=== PATIENT | female | born 1945 | race Caucasian/White ===

== ENCOUNTER 2016-11-29 16:49 | Inpatient (IN) | payer MEDICARE, OTHER ==
--- NOTE | ~2016-11-29 | DS ---
Discharge Summary [facility] [address] [place]. [address] NAME: BAN MA : 43 STATUS : DIS IN PAT#: [id number] AGE: 71 ADM/REG DATE : 11/29/16 MR#: [id number] REPORT SERV DATE: 12/02/16 DICTATED BY: BILLY HERNANDEZ DATE: 12/01/16 REPORT STATUS : Draft TRANSCRIBED BY: MODL DATE: 12/01/16 ADMISSION DATE: 11/29/2016 DISCHARGE DATE: 12/01/2016 PRINCIPAL DIAGNOSIS: Acute aspiration of chronic obstructive pulmonary disease. SECONDARY DIAGNOSIS: Acute on chronic hypoxemic respiratory failure, cor pulmonale, and anasarca. HISTORY OF PRESENT ILLNESS: Please see my dictation, 11/29/2016. HOSPITAL COURSE: Admitted from Pulmonary office for increasing dyspnea with severe wheezing consistent with COPD exacerbation. The patient was also found to be volume overloaded. She received steroids, aerosol therapy, and also had diuretic infusion with vast volume loss and resolution of her feeling of well being, elimination of her shortness of breath and wheezing. The patient was able to be transitioned to oral diuretics, was given Demadex for enhanced absorption due to failure of furosemide. She was able to be released in good condition on 12/01/[address] Ar Valdez in one to two weeks and with Dr. Torres as previously scheduled. Was given Demadex to replace the Lasix. She was also changed from her metered-dose inhalers to nebulized therapy, which she said she was unable to afford metered-dose inhaler, so she received prescriptions for Brovana, Pulmicort, Atrovent with albuterol p.r.n. Other medicines were unchanged, although it was recommended that she back off on the numerous vitamin therapies, which ostensibly was missing magnesium. She was encouraged to continue potassium and magnesium supplements particularly in light of her chronic leg cramps and diuretic therapy. TAMIKO/SABINE Billy Hernandez M.D. / [id number] CC: Israel You Brian, M.D.
--- NOTE | ~2016-11-29 | HP ---
History And Physical [id number] [place]. [address] NAME: BAN MEHTA : 43 STATUS : ADM IN [facility]#: [id number] AGE: 71 ADM/REG DATE : 11/29/16 MR#: [id number] REPORT SERV DATE: 11/29/16 DICTATED BY: BILLY HERNANDEZ DATE: 11/29/16 REPORT STATUS : Draft TRANSCRIBED BY: SABINE DATE: 11/29/16 DATE OF ADMISSION: 11/29/2016 REASON FOR ADMISSION: Acute exacerbation of COPD and acute on chronic hypoxemic respiratory failure. HISTORY OF PRESENT ILLNESS: Ms. Mehta is a 71-year-old female with COPD, chronic lymphedema, hypertension, last admission one month ago for GI bleed, found to have adenocarcinoma, underwent resection with reanastomosis, discharged at the end of September to rehab and has been home for the last month, was doing okay at first, last two to three weeks had increasing shortness of breath, nocturnal cough, dyspnea on minimal exertion, unable to even eat. She has actually in fact lost 40 pounds over the past six weeks between her surgery and the postoperative recovery. Over the last few days, she has had rhinorrhea. The cough has become more severe with associated wheezing. She had a followup appointment with Dr. Torres today and was found to be very hypoxic, and was transferred here for inpatient hospitalization. The patient denies any chest pain. No fever and chills. She has had nausea without vomiting. No gastrointestinal or genitourinary complaints. Swelling of her lips unchanged. No bleeding. No neurological deficits. She has had some altered mental status according to family, but this was associated when her saturations were very low. REVIEW OF SYSTEMS: Negative. PAST MEDICAL HISTORY: As mentioned above. MEDICATIONS: Singular, Prilosec, Anoro, Atrovent, albuterol, MiraLAX, Lasix, [place], multivitamin. ALLERGIES: PENICILLIN. FAMILY HISTORY: Positive for coronary artery disease. SOCIAL HISTORY: The patient is a remote smoker. PHYSICAL EXAMINATION: VITAL SIGNS: On presentation, blood pressure 131/80, pulse 87, respiration 18, afebrile, saturating 78% on 2 L went up to 91% on 4. GENERAL: Dyspneic white female, oriented x3, in no apparent distress. HEENT: Pupils are equal, round, and reactive to light. Extraocular movements intact. No carotid deficits. Moist mucous membranes. Normal oropharynx. NECK: Revealed jugular venous distention about 6 to 8 cm of water while sitting bolt upright. CARDIAC: Regular rate and rhythm. No murmurs, gallops, or rubs. LUNGS: Showed diffuse wheeze along expiratory time. Air movement is satisfactory. ABDOMEN: Obese, soft, nontender. Bowel sounds normoactive. EXTREMITIES: 3+ edema bilaterally. Good pulses and good capillary refill. History And Physical [address] [address] NAME: BAN MEHTA : 43 STATUS : ADM IN [facility]#: [id number] AGE: 71 ADM/REG DATE : 11/29/16 MR#: [id number] REPORT SERV DATE: 11/29/16 DICTATED BY: BILLY HERNANDEZ DATE: 11/29/16 REPORT STATUS : Draft TRANSCRIBED BY: MODAndrae DATE: 11/29/16 NEUROLOGIC: Intact sensory and motor function in all four extremities. SKIN: Warm and dry. PSYCHIATRIC: She is appropriate. LABORATORY DATA: Laboratory evaluation is pending. Chest x-ray is pending. Duplex was negative six weeks ago. ASSESSMENT AND PLAN: 1. Acute exacerbation of chronic obstructive pulmonary disease, has been on steroids, mucolytics, aerosol treatments, doxycycline. Volume overload may contribute to her condition. She may have pleural effusion. Diuretic infusion will be initiated. Electrolytes will be repleted empirically. 2. Weight loss postoperatively plus changes in fluid status may be part of this. We will monitor her p.o. intake expectantly if she remains overweight. We will follow for now. 3. Hypertension. Blood pressure exacerbated by her respiratory distress. Hydralazine will be offered p.r.n. with further interventions as indicated. TAMIKO/SABINE Billy Hernandez M.D. / [id number] CC: Israel You M.D.
--- NOTE | ~2016-11-29 | CN ---
Consultation Report [facility] [address] [place]. [address] NAME: ANNA MEHTA : 43 STATUS : ADM IN PAT#: [id number] AGE: 71 ADM/REG DATE : 11/29/16 MR#: [id number] REPORT SERV DATE: 11/30/16 DICTATED BY: KUNAL IBANEZ DATE: 11/30/16 REPORT STATUS : Draft TRANSCRIBED BY: SABINE DATE: 11/30/16 CONSULTATION NOTE DATE OF CONSULTATION: 11/30/2016 CHIEF COMPLAINT: Worsening shortness of breath and hypoxemia. HISTORY OF PRESENT ILLNESS: Ms Anna Mehta is a pleasant 71-year-old white female with a past medical history significant for colon cancer, COPD, chronic hypoxemia, and bronchiectasis; who presents to [facility] as a direct admit from our Pulmonary Clinic. It should be noted that Ms Mehta was hospitalized as recently as on 10/11/2016, when she underwent resection for colon cancer. The patient has had the fairly good course in the interim, given her pulmonary disease and associated comorbidities. Ms Mehta was seen in our Pulmonary Clinic yesterday. She has been seen by Dr. Ortiz in the remote past. She does have known obstructive airway disease and chronic oxygen requirements at 2 to 4 L. She is on a pulmonary regimen of albuterol, Anoro Ellipta, and Atrovent. She states that she is compliant with these medications. She does have complaints of disordered sleep, but denies obvious snoring. The patient quit smoking 18 years ago, prior to this time, she smoked upwards of two packs a day for a period of 30 to 40 years. She describes her exercise tolerance as being quite poor, being only able to take a few steps before feeling some degree of dyspnea. Again, the patient was hospitalized in September where she underwent resection for adenocarcinoma of the colon. She did have some issues post procedurally with hypercapnia and did receive some BiPAP therapy with improvement. She did eventually transition home. Since this time, she has had significant weight loss that she attributes to a significantly decreased appetite. More recently, over the course of the last two or three days, she has had worsening hypoxemia and shortness of breath. She did present to our Pulmonary Clinic yesterday, and while there demonstrated oxygen saturation in the 70s, given these recent changes and her complaints of productive cough, she was admitted to [facility] for further workup. Currently, the patient states that her shortness of breath is slightly better. She is on 3 L of supplemental oxygen with appropriate oxygen saturations. She has received breathing treatments, steroids, and antibiotics, as well as diuretics with some again improvement in her pulmonary status. She is coughing some, but is not producing purulent sputum. She denies any overt wheezing in her chest. She denies recurrent upper respiratory infections. The patient has had some worsening lower extremity edema as of late. She denies orthopnea or paroxysmal nocturnal dyspnea. She currently denies any murmurs, angina, or palpitations. Regards to constitutional symptoms, she currently denies fever, chills, nausea, vomiting, or abdominal pain. Consultation Report [id number] [facility]. [address] NAME: ANNA MEHTA : 43 STATUS : ADM IN [facility]#: [id number] AGE: 71 ADM/REG DATE : 11/29/16 MR#: [id number] REPORT SERV DATE: 11/30/16 DICTATED BY: KUNAL IBANEZ DATE: 11/30/16 REPORT STATUS : Draft TRANSCRIBED BY: SABINE DATE: 11/30/16 PAST MEDICAL HISTORY: 1. COPD. 2. Chronic hypoxemia. 3. Hypertension. 4. Gastroesophageal reflux disease. PAST SURGICAL HISTORY: Recent colon surgery. FAMILY HISTORY: There is a patient history of coronary artery disease. She states that several members of her family had lung cancer. SOCIAL HISTORY: The patient is . She has at least two children. Her daughter is involved with her healthcare. She previously worked as a LICENSED MASSAGE PRACTITIONER and also in some capacity with [employer]. She denies any known exposures to dust, silica, or asbestos. TOBACCO/ALCOHOL: As previously mentioned, the patient quit smoking 17 or 18 years ago. Prior to this time, she smoked upwards of two packs a day for a period of 30 to 40 years. She denies any recent alcohol or illicit drug use. MEDICATIONS: 1. Albuterol. 2. Furosemide 40. 3. Pantoprazole 40 mg. 4. Potassium chloride 10 mEq. 5. Zanaflex 4 mg. 6. Anoro Ellipta. ALLERGIES: THE PATIENT HAS KNOWN ALLERGY TO AUGMENTIN. REVIEW OF SYSTEMS: A complete review of systems was performed with pertinent positives and negatives are contained within the body of the HPI. PHYSICAL EXAMINATION: VITAL SIGNS: Blood pressure is 151/72, heart rate 76, T-max is 98.5, respiratory rate is 17, and SpO2 is 93% on 3 L nasal cannula. GENERAL: The patient is a pleasant, well-nourished/well-developed female who is not currently exhibiting any signs of acute distress. SKIN: Skin with appropriate texture and turgor. No rashes, lesions, or ulcers. Nails are clear without cyanosis or clubbing. HEENT: HEAD: Skull is normocephalic/atraumatic. Facies symmetric. No masses or lesions. EYES: Sclera anicteric, conjunctiva pink without exudates. Extra ocular movements intact. Pupils are equal, round, reactive to light. EARS: Auricles and tragus without pain to palpation. Hearing is grossly intact. Consultation Report [address] [place]. [address] NAME: ANNA MEHTA : 43 STATUS : ADM IN [facility]#: [id number] AGE: 71 ADM/REG DATE : 11/29/16 MR#: [id number] REPORT SERV DATE: 11/30/16 DICTATED BY: KUNAL IBANEZ DATE: 11/30/16 REPORT STATUS : Draft TRANSCRIBED BY: SABINE DATE: 11/30/16 NOSE: Bilateral nasal patency. Sinuses without tenderness upon palpation. THROAT: The patient is edentulous. NECK: Neck supple. Trachea midline. No cervical lymphadenopathy appreciated. THORAX/LUNGS: Diminished breath sounds in the posterior lung argueta. There are few scattered rhonchi. CARDIOVASCULAR: Regular rate and rhythm. No murmurs, rubs, or gallops. Anterior chest without thrills, heaves, or lifts. ABDOMEN: Soft. Non-distended, non-tender. Active bowel sounds in all four quadrants. No hepatosplenomegaly noted. PERIPHERAL VASCULAR: No edema. No varicosities, stasis changes, open sores, ulcerations, or phlebitis. 2+ pulses in radial and dorsalis pedis. MUSCULOSKELETAL: Full AROM and PROM in all joints. No evidence of erythema, deformity, or crepitus. NEUROLOGIC: CN II - XII grossly intact. Good muscle bulk and tone bilaterally. Strength 5/5 throughout. PSYCHIATRIC: The patient demonstrates good judgment and insight. Pt is A&O x 3. ACCESSORY DATA: Reveals creatinine is 1.18, glucose is 146. White blood cell count is 7800, hemoglobin and hematocrit are 11.0 and 36. Chest x-ray reveals mild bibasilar atelectasis, superimposed on mild chronic interstitial lung changes. CT of the chest obtained in September of this year reveals severe emphysematous changes and bronchiectatic changes. IMPRESSION: 1. Acute exacerbation of chronic obstructive pulmonary disease. 2. Acute on chronic hypoxemic hypercapnic respiratory failure. 3. Mild volume overload. 4. Bronchiectasis. 5. Colon cancer. 6. Possible obstructive sleep apnea. 7. Weight loss. PLAN: 1. At this time, the patient has been appropriately placed on antibiotics. We will taper her steroids appropriately. She will be placed on a full armamentarium and nebulized medications. In regard to the patient's respiratory failure, she has been placed appropriately on supplemental oxygen. We will attempt to wean appropriately. At this time, it is unclear whether she would benefit from noninvasive positive pressure ventilation. We will check an overnight pulse oximetry toward the end of her stay to rule out an obstructive sleep apnea component. 2. In regard to the patient's mild volume overload, she has been given a dose of diuretics with good urine output. I will defer this to the primary team at this time. 3. In regard to the patient's bronchiectatic changes on CT, she does not clearly demonstrate an exacerbation of bronchiectasis at this time. We will continue her on her current antibiotic regimen. The aforementioned impression and plan has been discussed with Dr. Pacheco, who will follow Consultation Report [address] [address] NAME: ANNA MEHTA : 43 STATUS : ADM IN PAT#: [id number] AGE: 71 ADM/REG DATE : 11/29/16 MR#: [id number] REPORT SERV DATE: 11/30/16 DICTATED BY: KUNAL IBANEZ DATE: 11/30/16 REPORT STATUS : Draft TRANSCRIBED BY: MODL DATE: 11/30/16 further recommendations. We thank you for this consult and look forward to participating in the care of Ms Anna Mehta. GBS/MODL Kunal Ibanez PA-C / [id number] CC: Israel You M.D.
[~2016-11-29 16:49] MED LIST: ANOROELLIPTA INH; ATRONASAL6 NAS; FLONASE NAS; GARLIC PO; LIPOTRIAD1 CAP PO; NAP500 PO; NASAL SPRAY; PRILO PO; PROVENTSOL INH; SINGULAIR1 PO; THERGRANM PO; VITA10 PO; VITC500 PO
[2016-11-29 19:29] LABS: BASOPHILS 0.1 %; BASOPHILS ABSOLUTE 0.01 10/3/uL (0.0-0.16); EOSINOPHILS 0 %; IMMATURE GRANULOCYTES 0.4 %; IMMATURE GRANULOCYTES ABSOLUTE 0.03 10/3/uL (0.0-0.11); LYMPHOCYTES 14.8 %; LYMPHOCYTES ABSOLUTE 1.16 10/3/uL (0.67-4.30); MEAN CORPUS HGB CONC 30.6 g/dL (32.0-36.0); MEAN CORPUSCULAR HEMOGLOB 27.7 pg (26.0-34.0); MEAN PLATELET VOLUME 8.4 fL (9.2-13.0); MONOCYTES 6.4 %; NEUTROPHILS 78.3 %; NEUTROPHILS ABSOLUTE 6.12 10/3/uL (2.02-8.40); PLATELET COUNT 363 10/3/uL (150-400); RBC DISTRIBUTION WIDTH 15.9 % (12.0-16.0); WHITE BLOOD CELLS 7.8 10/3/uL (4.5-10.5)
[2016-11-29] MEDS ORDERED: FLONASE NAS (19:29)
[2016-11-29] MEDS ORDERED: ALBUTEROL5 INH (19:29)
[2016-11-29] MEDS ORDERED: ANOROELLIPTA INH (19:29)
[2016-11-29 19:30] LABS: MANUAL DIFF NO %; MEAN CORPUSCULAR VOLUME 90.7 fL (80-100); RED CELL COUNT 3.97 10/6/uL (4.0-5.6)
[2016-11-29] MEDS ORDERED: L40 PO (19:30)
[2016-11-29] MEDS ORDERED: ZANAFLEX 4 MG TA4 MG PO (19:30)
[2016-11-29] MEDS ORDERED: K-TABS10 MEQ PO (19:30)
[2016-11-29] MEDS ORDERED: PROTONIX PO (19:30)
[2016-11-29] MEDS ORDERED: ATRONASAL6 NAS (19:31)
[2016-11-29] MEDS ORDERED: MVI PO (19:31)
[2016-11-29] MEDS ORDERED: [UNRECOGNIZED DRUG - OTHER] PO (19:31)
[2016-11-29] MEDS ORDERED: VITAMIN A PO (19:32)
[2016-11-29] MEDS ORDERED: VITAMIN B PO (19:32)
[2016-11-29] MEDS ORDERED: VITAMIN E PO (19:32)
[2016-11-29] MEDS ORDERED: [UNRECOGNIZED DRUG - OTHER] PO (19:33)
[2016-11-29] MEDS ORDERED: GARLIC PO (19:33)
[2016-11-29] MEDS ORDERED: VITAMIN C PO (19:34)
[2016-11-29 19:44] LABS: A/G RATIO 0.8 (0.7-1.9); ALBUMIN 3.3 G/DL (3.5-5.0); ALKALINE PHOSPHATASE 80 U/L (45-117); BUN (BLOOD UREA NITROGEN) 12 MG/DL (6-23); CALCIUM, SERUM 9.1 MG/DL (8.5-10.4); CHLORIDE, SERUM 102 MMOL/L (96-112); CO2 (CARBON DIOXIDE) 35 MMOL/L (24-34); CREATININE 1.08 MG/DL (0.55-1.02); GFR AFRICAN AMERICAN 59 ML/MIN (>=60); GFR NON AFRICAN AMERICAN 51 ML/MIN (>=60); GLOBULIN 4.4 G/DL (2.5-4.1); GLUCOSE, SERUM 108 MG/DL (60-99); POTASSIUM, SERUM 3.7 MMOL/L (3.5-5.3); SGOT(AST) 28 U/L (5-40); SGPT(ALT) 27 U/L (5-65); SODIUM, SERUM 144 MMOL/L (135-148); TOTAL BILIRUBIN 0.3 MG/DL (0-1.2); TOTAL PROTEIN 7.7 G/DL (6.0-8.5)
[2016-11-29 19:50] LABS: CARBOXYHEMOGLOBIN 0.5 % (0-3); DEVICE NC; HEMOBLOGIN CONTENT 11.1 G/DL (12-16); INSTRUMENT SERIAL # 8083; METHEMOGLOBIN 0.2 % (0-3); O2 CONTENT 14.6 VOL% (18-24); OPERATOR ID 31061; PCO2 (CO2 TENSION) 47 MMHG (35-45); PO2 (O2 TENSION) 70 MMHG (79-93); SAMPLE Arterial; pH 7.44 (7.37-7.43)
[2016-11-30 05:16] LABS: BUN (BLOOD UREA NITROGEN) 15 MG/DL (6-23); CALCIUM, SERUM 9.2 MG/DL (8.5-10.4); CHLORIDE, SERUM 97 MMOL/L (96-112); CO2 (CARBON DIOXIDE) 34 MMOL/L (24-34); CREATININE 1.18 MG/DL (0.55-1.02); GFR AFRICAN AMERICAN 53 ML/MIN (>=60); GFR NON AFRICAN AMERICAN 46 ML/MIN (>=60); POTASSIUM, SERUM 3.9 MMOL/L (3.5-5.3); SODIUM, SERUM 139 MMOL/L (135-148)
[2016-11-30 05:24] LABS: GLUCOSE, SERUM 146 MG/DL (60-99)
[2016-12-01 06:47] LABS: CALCIUM, SERUM 9.1 MG/DL (8.5-10.4); CHLORIDE, SERUM 94 MMOL/L (96-112); GFR AFRICAN AMERICAN 52 ML/MIN (>=60); GFR NON AFRICAN AMERICAN 45 ML/MIN (>=60); GLUCOSE, SERUM 140 MG/DL (60-99); POTASSIUM, SERUM 3.3 MMOL/L (3.5-5.3); SODIUM, SERUM 140 MMOL/L (135-148)
[2016-12-01 06:52] LABS: BUN (BLOOD UREA NITROGEN) 24 MG/DL (6-23); CO2 (CARBON DIOXIDE) 39 MMOL/L (24-34)
[2016-12-01] MEDS ORDERED: PEP20 PO ×2 (09:18→09:19)
[2016-12-01] MEDS ORDERED: NAC600 MG PO (09:29)
[2016-12-01] MEDS ORDERED: MONODOX100 MG PO (09:30)
[2016-12-01] MEDS ORDERED: MAGOX4 PO (09:31)
[2016-12-01] MEDS ORDERED: DEMA20 PO (09:31)
[2016-12-01] MEDS ORDERED: P1 PO (09:32)
[2016-12-01] MEDS ORDERED: PULRESP1 INH (09:33)
[2016-12-01] MEDS ORDERED: BROVANA15 MCG INH (09:33)
[2016-12-01] MEDS ORDERED: ATROVENTUD INH (09:34)
[2016-12-19] MEDS ORDERED: ATROVENTUD INH (08:34)
[2016-12-19] MEDS ORDERED: PULRESP.5 INH (08:35)
[2016-12-19] MEDS ORDERED: BROVANA15 MCG INH (08:35)
[2016-12-19] MEDS ORDERED: ALBUTEROL0.083 % INH (08:36)
[2016-12-19] MEDS ORDERED: ATRONASAL6 NAS (08:36)
[2016-12-19] MEDS ORDERED: FLONASE NAS (08:37)
[2016-12-19] MEDS ORDERED: NAC600 MG PO (08:37)
[2016-12-19] MEDS ORDERED: KLOR-CON 1010 MEQ PO (08:37)
[2016-12-19] MEDS ORDERED: PROTONIX PO (08:38)
[2016-12-19] MEDS ORDERED: SINGULAIR1 PO (08:38)
[2016-12-19] MEDS ORDERED: MAGOX4 PO (08:39)
[2016-12-19] MEDS ORDERED: DEMA20 PO (08:39)
[2016-12-19] MEDS ORDERED: VITAMIN A PO (08:40)
[2016-12-19] MEDS ORDERED: ZANAFLEX2 MG PO (08:40)
[2016-12-19] MEDS ORDERED: MULTIVIT/MIN PO (08:40)
[2016-12-19] MEDS ORDERED: COD LIVER OIL PO (08:41)
[2016-12-19] MEDS ORDERED: VITAMIN E PO (08:41)
[2016-12-19] MEDS ORDERED: VITAMIN B PO (08:42)
[2016-12-19] MEDS ORDERED: CALCIUM PO (08:42)
[2016-12-19] MEDS ORDERED: VITAMIN C PO (08:42)
[2016-12-19] MEDS ORDERED: PROAIR HFA INH (08:44)
[2017-04-23] MEDS ORDERED: ULTRAM50 PO (15:32)
[2017-04-23] MEDS ORDERED: POLYMYXIN B/ OPH (15:32)
[2017-04-23] MEDS ORDERED: SINGULAIR1 PO ×2 (15:33→16:36)
[2017-04-23] MEDS ORDERED: NO MEDICATIONS (15:37)
[2017-04-23] MEDS ORDERED: ZANAFLEX2 MG PO (16:36)
[2017-04-23] MEDS ORDERED: ATROVENTUD INH (16:36)
[2017-04-27] MEDS ORDERED: MUCINEX600 MG PO (11:44)
[2017-04-27] MEDS ORDERED: DEMA20 PO (11:48)
[2017-04-27] MEDS ORDERED: P10 PO (11:48)
[2017-04-27] MEDS ORDERED: KLOR-CON 1010 MEQ PO (11:49)
[2017-04-27] MEDS ORDERED: PEP20 PO (11:49)
[2017-04-27] MEDS ORDERED: BROVANA15 MCG INH (11:53)
[2017-04-27] MEDS ORDERED: PULRESP1 INH (11:53)
[2017-07-01] MEDS ORDERED: BUM2 PO (00:03)
[2017-07-01] MEDS ORDERED: VENTOLIN HFA PO (00:03)
[2017-07-01] MEDS ORDERED: PROTONIX PO (00:03)
[2017-07-01] MEDS ORDERED: ZANAFLEX2 MG PO (00:03)
[2017-07-01] MEDS ORDERED: SINGULAIR1 PO (00:03)
[2017-07-01] MEDS ORDERED: K-TABS10 MEQ PO (00:04)
[2017-07-01] MEDS ORDERED: PAIN RX PO (00:04)
[2017-07-01] MEDS ORDERED: [UNRECOGNIZED DRUG - OTHER] PO (00:05)
[2017-07-01] MEDS ORDERED: MUCINEX600 MG PO (00:05)
[2017-07-01] MEDS ORDERED: VITAMINS PO (00:05)
[2017-07-01] MEDS ORDERED: *UNABLE1 (00:06)
== END 2016-12-01 13:47 | disposition home or self-care (01) | DRG 189 ==
LOC: 4SO 16:49
PROVIDERS: Internal Medicine
DX: J96.21 Acute and chronic respiratory failure with hypoxia (principal); I27.81 Cor pulmonale (chronic); Z99.81 Dependence on supplemental oxygen; J44.1 Chronic obstructive pulmonary disease with (acute) exacerbation; E87.70 Fluid overload, unspecified; J96.22 Acute and chronic respiratory failure with hypercapnia; I10 Essential (primary) hypertension; Z88.0 Allergy status to penicillin; Z79.891 Long term (current) use of opiate analgesic; Z87.891 Personal history of nicotine dependence; Z85.038 Personal history of other malignant neoplasm of large intestine; Z90.49 Acquired absence of other specified parts of digestive tract; K21.9 Gastro-esophageal reflux disease without esophagitis; G47.33 Obstructive sleep apnea (adult) (pediatric); R63.4 Abnormal weight loss; Z68.31 Body mass index [BMI] 31.0-31.9, adult; E66.9 Obesity, unspecified
CPT/HCPCS: 36600; 71020; 80048; 80053; 82805; 82962; 83735; 83880; 85025; 94640; 94667; A9270-GY; J1940; J2920

== ENCOUNTER 2016-12-19 08:44 | Inpatient (IN) | payer MEDICARE, OTHER ==
--- NOTE | ~2016-12-19 | HP ---
History And Physical [address] [facility] [place]. [address] NAME: BAN MA : 44 STATUS : ADM IN [facility]#: [id number] AGE: 71 ADM/REG DATE : 12/19/16 MR#: [id number] REPORT SERV DATE: 12/19/16 DICTATED BY: TULIO MARRUFO DATE: 12/19/16 REPORT STATUS : Draft TRANSCRIBED BY: SABINE DATE: 12/19/16 DATE OF ADMISSION: 12/19/2016 REASON FOR ADMISSION: COPD with acute exacerbation, hypoxemia, and right lower lobe pneumonia. HISTORY: This is a 71-year-old, white female, who has had shortness of breath since her colon surgery in September. She had colon cancer removed. She has not returned to driving. She is on 3 L a minute at home. She is followed in the office by Dr. Robina Torres. She presents now to the emergency room feeling bad. She has had increasing shortness of breath and dyspnea over the last couple of days. She went to hinduism on Saturday, [facility] and feels like that contributed to her downfall with decreasing energy and alertness. She has a cough that is nonproductive. She is given acetylcysteine on 12/[address] Ar Valdez. She continues to remain short of breath but without fever, chills or night sweats. She is admitted to the hospital with chest x-ray evidence of right lower lobe pneumonia, increasing dyspnea and hypoxemia. PAST MEDICAL HISTORY: She was hospitalized with colon cancer. She was recently admitted 11/29/2016 to 12/01/2016 with acute exacerbation of COPD. She has been admitted from the Pulmonary Medicine Office of Dr. Torres at that time. She was admitted 10/08 to 10/17 with GI bleed and melena, found to have a colonic mass with poorly differentiated adenocarcinoma with right hemicolectomy having been done at that time. She was on 2 L a minute via nasal cannula at home of oxygen flow back then, now is on 3 L a minute subsequently. MEDICATIONS: Her home medications include the following: Acetylcysteine [address] p[address]o. b.i.d. by Dr. Valdez, albuterol MDI p.r.n., albuterol sulfate aerosol four times a day, Brovana 15 mcg twice a day, budesonide 0.5 mg b.i.d., fluticasone nasal spray. She takes vitamin B complex, vitamins, ipratropium nasal spray, Atrovent inhaled by nebulizer twice a day, magnesium oxide 400 mg 2 every morning, Singulair 10 mg daily, multivitamins 1 a day, pantoprazole 40 mg each morning, potassium chloride 10 mEq p.o. b.i.d., tizanidine 4 mg p.o. h.s. p.r.n., furosemide 20 mg p.o. q.a.m., vitamin A, vitamin E, cod liver oil, calcium, vitamin C, garlic supplement. MEDICINE INTOLERANCES: Augmentin caused nausea and vomiting. Penicillins were ineffective. Codeine made her feel hyper and potassium clavulanate caused nausea and vomiting. SOCIAL HISTORY: She is from 2 husbands. She moved down to [facility] from [address] [address] NAME: BAN MA : 43 STATUS : ADM IN [facility]#: [id number] AGE: 71 ADM/REG DATE : 12/19/16 MR#: [id number] REPORT SERV DATE: 12/19/16 DICTATED BY: TULIO MARRUFO DATE: 12/19/16 REPORT STATUS : Draft TRANSCRIBED BY: SABINE DATE: 12/19/16 [place] about 30 years ago as her was transferred for work. She quit smoking cigarettes about 18 years ago. She had 4 children, 1 of alcohol and drug use. Other 3 are alive and well. She attends [employer]. FAMILY HISTORY: Her mother of pancreatic cancer. Father with lung cancer. Uncle with colon cancer. She does live alone. REVIEW OF SYSTEMS: She had weakness since the colon cancer surgery. Does not drive yet. She has severe dyspnea on exertion, cough. No fever or chills. No melena, hematemesis, fits, seizures, convulsions, unilateral weakness, nausea, vomiting, or diarrhea. She does not remember the names of her doctors nor the names of her medication. She does not know what her medications are for. She has obesity but no diabetes. No fits, seizures, convulsions, melena, hematemesis. No nausea, vomiting, diarrhea. The remainder of review of systems is negative. PHYSICAL EXAMINATION: VITAL SIGNS: Blood pressure 140/70 with a heart rate of 88, respiratory rate 16, afebrile. HEENT: EOMI. Sclerae clear. Conjunctivae pink. NECK: No bruit without any JVD. CHEST: End inspiratory squeaks and early expiratory wheezing. HEART: Regular S1, S2 without murmur, gallop, click. BREASTS: Grossly without mass. ABDOMEN: Soft, nontender. Bowel sounds positive. Scars are well healed. EXTREMITIES: Have 3+ pitting edema bilaterally. Distal pulses are palpable through the edema. NEUROLOGIC: She withdraws to plantar stimulation. Biometrics Analyst is equal and symmetric bilaterally. Coordination intact. She has no tremor. She is symmetric and equal neurologically. LYMPHATICS: There is no lymphatics noted. SKIN: Without rash, ecchymosis or edema. LABORATORY DATA: Arterial blood gas was 7.51, 51, and 69 with a respiratory rate of 26. Flu A and B was negative. Her sodium 136, potassium 4.2, creatinine 1.1, BUN 11, albumin 3.0. Liver tests were normal. Portable chest x-ray shows right lower lobe pneumonia which is nonconsolidated. Her white count was 8200, hemoglobin 11.0, hematocrit 35.6, platelets 225. ASSESSMENT: 1. Right lower lobe pneumonia. We will treat likely atypical's, Zithromax given IV already and 2 g Rocephin. We will continue this. Also Solu-Medrol was given 125 mg IV History And Physical [address] [address] NAME: BAN MA : 43 STATUS : ADM IN [facility]#: [id number] AGE: 71 ADM/REG DATE : 12/19/16 MR#: [id number] REPORT SERV DATE: 12/19/16 DICTATED BY: TULIO MARRUFO DATE: 12/19/16 REPORT STATUS : Draft TRANSCRIBED BY: MODAndrae DATE: 12/19/[address] Sheppard. Antibiotics were given before blood cultures were drawn. 2. Chronic obstructive pulmonary disease, severe, on oxygen at home. 3. Obesity. 4. History of colon cancer, recently. 5. Leg edema, may be a function of right heart failure from her chronic hypoxemia, chronic respiratory failure with hypoxemic and hypercarbic respiratory failure. PLAN: IV antibiotics, steroids, aerosols. DB/MODL Tulio Marrufo M.D. / [id number] CC: Israel Mitchell M.D. Pamela Sud, M.D.
--- NOTE | ~2016-12-19 | DS ---
Discharge Summary [place] [facility] [place] [address] NAME: BAN MA : 43 STATUS : DIS IN PAT#: [id number] AGE: 71 ADM/REG DATE : 12/19/16 MR#: [id number] REPORT SERV DATE: 12/25/16 DICTATED BY: ABBEY ROBIN DATE: 12/24/16 REPORT STATUS : Draft TRANSCRIBED BY: MODL DATE: 12/24/16 ADMISSION DATE: 12/19/2016 DISCHARGE DATE: 12/24/2016 REASON FOR ADMISSION: Acute on chronic COPD exacerbation, acute on chronic hypoxic respiratory failure, and bronchiectasis exacerbation. HISTORY OF PRESENT ILLNESS: Please refer to Dr. Channing Frazier's history and physical dated 12/19/2016 for complete details regarding the patient's admission. In brief, the patient is admitted to the Hospitalist Service for hypoxic respiratory failure, COPD exacerbation, and concern for pneumonia. HOSPITAL COURSE: The patient had an uncomplicated hospital course. The patient was admitted by Dr. Frazier who started her on IV steroids, breathing treatments, and antibiotics. The patient had an influenza screen, which was negative. Procalcitonin was normal. Chest x-ray on 12/19/2016 was concerning for question early right lower lobe pneumonia. A repeat x-ray on 12/22/2016 showed atelectasis and/or infiltrate in the right middle lung base has improved. The patient was discharged recently by Dr. Shelton who was concerning for cor pulmonale. I had increased her diuresis with IV Bumex along with giving her steroids and breathing treatments for her COPD exacerbation. Her baseline is using 2 liters nasal cannula at rest, with 4 liters with exertion. After the above intervention, she was back to her baseline. She was saturating 95% on 2 liters and she was feeling much better. The day prior to discharge, she has significant short of breath after just walking from the bathroom to her bed. However, on the day of discharge, she did not have any significant breathing. She was requesting to go home, and she will be discharged home in a stable condition. DISCHARGE DIAGNOSES: Acute on chronic hypoxic respiratory failure, now resolved; acute on chronic chronic obstructive pulmonary disease exacerbation; a bronchiectasis exacerbation with a history of Pseudomonas in her sputum, now resolving; cor pulmonale; morbid obesity; and hypokalemia secondary to diuretics. PROCEDURES: Include chest x-ray. DISCHARGE MEDICATIONS: Include torsemide 20 mg twice a day, Flonase daily, Levaquin 750 mg once a day for 10, magnesium oxide 800 mg every morning, Singulair 10 mg daily, multivitamin daily, Protonix 40 mg at bedtime, Klor-Con 10 mEq twice a day, prednisone 40 mg once a day for four days, Brovana daily, ProAir daily, budesonide twice a day, Atrovent p.r.n., albuterol p.r.n., Zanaflex at bedtime, vitamin A, vitamin E, vitamin C, and vitamin B. We will arrange for home health along with attempting to arrange for a flutter valve and ensure the patient will be discharged home in stable condition to follow up with her PCP. This is Dr. Abbey Robin spending over 30 minutes of discharge planning and coordination of care on this patient. Discharge Summary [address] [address] NAME: BAN MA : 43 STATUS : DIS IN PAT#: [id number] AGE: 71 ADM/REG DATE : 12/19/16 MR#: [id number] REPORT SERV DATE: 12/25/16 DICTATED BY: ABBEY ROBIN DATE: 12/24/16 REPORT STATUS : Draft TRANSCRIBED BY: SABINE DATE: 12/24/16 SAVANA Abbey Robin MD / [id number] CC: MD Ar Garcia M.D.
[2016-12-19 08:16] LABS: BE (BASE EXCESS) 8.9 MEQ/L (0 +/- 2.5); CARBOXYHEMOGLOBIN 1.1 % (0-3); HCO3 (ACTUAL BICARBONATE) 34.4 MEQ/L (23-27); INSTRUMENT SERIAL # 8087; PCO2 (CO2 TENSION) 51 MMHG (35-45); PO2 (O2 TENSION) 69 MMHG (79-93); pH 7.45 (7.37-7.43)
[2016-12-19 08:17] LABS: ALLENS TEST Pos; DEVICE NC; HEMOBLOGIN CONTENT 11.6 G/DL (12-16); METHEMOGLOBIN 0.3 % (0-3); SAMPLE Arterial
[2016-12-19 08:26] LABS: BASOPHILS 0.2 %; BASOPHILS ABSOLUTE 0.02 10/3/uL (0.0-0.16); EOSINOPHILS 3.5 %; EOSINOPHILS ABSOLUTE 0.29 10/3/uL (0.0-0.53); HEMATOCRIT 35.6 % (36.0-48.0); IMMATURE GRANULOCYTES 0.2 %; IMMATURE GRANULOCYTES ABSOLUTE 0.02 10/3/uL (0.0-0.11); LYMPHOCYTES 20.1 %; LYMPHOCYTES ABSOLUTE 1.64 10/3/uL (0.67-4.30); MEAN CORPUS HGB CONC 30.9 g/dL (32.0-36.0); MEAN CORPUSCULAR HEMOGLOB 27.8 pg (26.0-34.0); MEAN CORPUSCULAR VOLUME 89.9 fL (80-100); MONOCYTES 10.2 %; MONOCYTES ABSOLUTE 0.83 10/3/uL (0.21-1.20); NEUTROPHILS 65.8 %; NEUTROPHILS ABSOLUTE 5.37 10/3/uL (2.02-8.40); PLATELET COUNT 255 10/3/uL (150-400); RED CELL COUNT 3.96 10/6/uL (4.0-5.6); WHITE BLOOD CELLS 8.2 10/3/uL (4.5-10.5)
[2016-12-19 08:27] LABS: ER CBC TAT 0 Hrs 03 Mins; MANUAL DIFF NO %
[2016-12-19 08:42] LABS: A/G RATIO 0.7 (0.7-1.9); ALKALINE PHOSPHATASE 78 U/L (45-117); CHLORIDE, SERUM 98 MMOL/L (96-112); CREATININE 1.11 MG/DL (0.55-1.02); GFR AFRICAN AMERICAN 57 ML/MIN (>=60); GFR NON AFRICAN AMERICAN 50 ML/MIN (>=60); GLOBULIN 4.3 G/DL (2.5-4.1); GLUCOSE, SERUM 118 MG/DL (60-99); SGPT(ALT) 18 U/L (5-65); SODIUM, SERUM 136 MMOL/L (135-148); TOTAL BILIRUBIN 0.5 MG/DL (0-1.2); TOTAL PROTEIN 7.3 G/DL (6.0-8.5)
[2016-12-19 08:44] LABS: BUN (BLOOD UREA NITROGEN) 11 MG/DL (6-23); CO2 (CARBON DIOXIDE) 33 MMOL/L (24-34); POTASSIUM, SERUM 4.6 MMOL/L (3.5-5.3); SGOT(AST) 28 U/L (5-40)
[~2016-12-19 08:44] MED LIST changes: +ALBUTEROL0.083 % INH; +ALBUTEROL5 INH; +ATROVENTUD INH; +BROVANA15 MCG INH; +CALCIUM PO; +COD LIVER OIL PO; +DEMA20 PO; +K-TABS10 MEQ PO; +KLOR-CON 1010 MEQ PO; +L40 PO; +MAGOX4 PO; +MONODOX100 MG PO; +MULTIVIT/MIN PO; +MVI PO; +NAC600 MG PO; +P1 PO; +PEP20 PO; +PROAIR HFA INH; +PROTONIX PO; +PULRESP.5 INH; +PULRESP1 INH; +VITAMIN A PO; +VITAMIN B PO; +VITAMIN C PO; +VITAMIN E PO; +ZANAFLEX 4 MG TA4 MG PO; +ZANAFLEX2 MG PO; +[UNRECOGNIZED DRUG - OTHER] PO; +[UNRECOGNIZED DRUG - OTHER] PO
[2016-12-19] MEDS ORDERED: GARLIC SUPPLEMENT PO (08:45)
[2016-12-19 08:50] LABS: INFLUENZA A SCREEN NEGATIVE (NEGATIVE); INFLUENZA B SCREEN NEGATIVE (NEGATIVE)
[2016-12-19 13:22] LABS: PROCALCITONIN 0.05 ng/mL (<0.5)
[2016-12-22 05:50] LABS: BASOPHILS 0.3 %; BASOPHILS ABSOLUTE 0.02 10/3/uL (0.0-0.16); EOSINOPHILS 0.4 %; EOSINOPHILS ABSOLUTE 0.03 10/3/uL (0.0-0.53); HEMATOCRIT 35.4 % (36.0-48.0); IMMATURE GRANULOCYTES 0.1 %; IMMATURE GRANULOCYTES ABSOLUTE 0.01 10/3/uL (0.0-0.11); LYMPHOCYTES 25.7 %; LYMPHOCYTES ABSOLUTE 1.97 10/3/uL (0.67-4.30); MANUAL DIFF NO %; MEAN CORPUS HGB CONC 31.1 g/dL (32.0-36.0); MEAN CORPUSCULAR HEMOGLOB 27.7 pg (26.0-34.0); MEAN CORPUSCULAR VOLUME 89.2 fL (80-100); MEAN PLATELET VOLUME 8.4 fL (9.2-13.0); MONOCYTES ABSOLUTE 0.77 10/3/uL (0.21-1.20); NEUTROPHILS 63.5 %; NEUTROPHILS ABSOLUTE 4.87 10/3/uL (2.02-8.40); PLATELET COUNT 333 10/3/uL (150-400); RBC DISTRIBUTION WIDTH 18.8 % (12.0-16.0); RED CELL COUNT 3.97 10/6/uL (4.0-5.6); WHITE BLOOD CELLS 7.7 10/3/uL (4.5-10.5)
[2016-12-22 06:05] LABS: CALCIUM, SERUM 8.9 MG/DL (8.5-10.4); CHLORIDE, SERUM 91 MMOL/L (96-112); CREATININE 1.07 MG/DL (0.55-1.02); GFR AFRICAN AMERICAN 60 ML/MIN (>=60); GFR NON AFRICAN AMERICAN 52 ML/MIN (>=60); GLUCOSE, SERUM 95 MG/DL (60-99); SODIUM, SERUM 142 MMOL/L (135-148)
[2016-12-22 06:08] LABS: BUN (BLOOD UREA NITROGEN) 21 MG/DL (6-23); CO2 (CARBON DIOXIDE) 40 MMOL/L (24-34); PHOSPHORUS, SERUM 2.9 MG/DL (2.5-4.5); POTASSIUM, SERUM 2.9 MMOL/L (3.5-5.3)
[2016-12-23 06:18] LABS: BASOPHILS 0.5 %; BASOPHILS ABSOLUTE 0.04 10/3/uL (0.0-0.16); EOSINOPHILS ABSOLUTE 0.09 10/3/uL (0.0-0.53); HEMATOCRIT 32.7 % (36.0-48.0); HEMOGLOBIN 10.2 g/dL (12.0-16.0); IMMATURE GRANULOCYTES 0.1 %; IMMATURE GRANULOCYTES ABSOLUTE 0.01 10/3/uL (0.0-0.11); LYMPHOCYTES 29.6 %; LYMPHOCYTES ABSOLUTE 2.59 10/3/uL (0.67-4.30); MEAN CORPUS HGB CONC 31.2 g/dL (32.0-36.0); MEAN CORPUSCULAR HEMOGLOB 27.6 pg (26.0-34.0); MEAN CORPUSCULAR VOLUME 88.6 fL (80-100); MEAN PLATELET VOLUME 8.2 fL (9.2-13.0); MONOCYTES 9.9 %; MONOCYTES ABSOLUTE 0.87 10/3/uL (0.21-1.20); NEUTROPHILS 58.9 %; NEUTROPHILS ABSOLUTE 5.16 10/3/uL (2.02-8.40); PLATELET COUNT 299 10/3/uL (150-400); RBC DISTRIBUTION WIDTH 18.8 % (12.0-16.0); RED CELL COUNT 3.69 10/6/uL (4.0-5.6); WHITE BLOOD CELLS 8.8 10/3/uL (4.5-10.5)
[2016-12-23 06:23] LABS: MANUAL DIFF NO %
[2016-12-23 06:34] LABS: BUN (BLOOD UREA NITROGEN) 19 MG/DL (6-23); CALCIUM, SERUM 8.9 MG/DL (8.5-10.4); CHLORIDE, SERUM 98 MMOL/L (96-112); CO2 (CARBON DIOXIDE) 38 MMOL/L (24-34); CREATININE 0.95 MG/DL (0.55-1.02); GFR AFRICAN AMERICAN 69 ML/MIN (>=60); GFR NON AFRICAN AMERICAN 60 ML/MIN (>=60); GLUCOSE, SERUM 90 MG/DL (60-99); PHOSPHORUS, SERUM 3.1 MG/DL (2.5-4.5); POTASSIUM, SERUM 3.5 MMOL/L (3.5-5.3); SODIUM, SERUM 142 MMOL/L (135-148)
[2016-12-24 05:33] LABS: BASOPHILS 0.2 %; BASOPHILS ABSOLUTE 0.02 10/3/uL (0.0-0.16); EOSINOPHILS 0.5 %; EOSINOPHILS ABSOLUTE 0.04 10/3/uL (0.0-0.53); HEMATOCRIT 34.8 % (36.0-48.0); IMMATURE GRANULOCYTES 0.7 %; IMMATURE GRANULOCYTES ABSOLUTE 0.06 10/3/uL (0.0-0.11); LYMPHOCYTES 25.9 %; MEAN CORPUS HGB CONC 31.6 g/dL (32.0-36.0); MEAN CORPUSCULAR HEMOGLOB 28.1 pg (26.0-34.0); MEAN CORPUSCULAR VOLUME 88.8 fL (80-100); MEAN PLATELET VOLUME 8.9 fL (9.2-13.0); MONOCYTES 9.8 %; MONOCYTES ABSOLUTE 0.87 10/3/uL (0.21-1.20); NEUTROPHILS 62.9 %; NEUTROPHILS ABSOLUTE 5.58 10/3/uL (2.02-8.40); PLATELET COUNT 348 10/3/uL (150-400); RBC DISTRIBUTION WIDTH 18.5 % (12.0-16.0); RED CELL COUNT 3.92 10/6/uL (4.0-5.6); WHITE BLOOD CELLS 8.9 10/3/uL (4.5-10.5)
[2016-12-24 05:34] LABS: MANUAL DIFF NO %
[2016-12-24 05:47] LABS: BUN (BLOOD UREA NITROGEN) 22 MG/DL (6-23); CALCIUM, SERUM 9.4 MG/DL (8.5-10.4); CHLORIDE, SERUM 95 MMOL/L (96-112); CO2 (CARBON DIOXIDE) 39 MMOL/L (24-34); CREATININE 1.03 MG/DL (0.55-1.02); GFR AFRICAN AMERICAN 63 ML/MIN (>=60); GFR NON AFRICAN AMERICAN 54 ML/MIN (>=60); GLUCOSE, SERUM 91 MG/DL (60-99); PHOSPHORUS, SERUM 3.1 MG/DL (2.5-4.5); POTASSIUM, SERUM 3.2 MMOL/L (3.5-5.3); SODIUM, SERUM 142 MMOL/L (135-148)
[2016-12-24] MEDS ORDERED: LEVAQUIN750 MG PO (10:08)
[2016-12-24] MEDS ORDERED: P20 PO (10:11)
[2017-04-23] MEDS ORDERED: ULTRAM50 PO (15:32)
[2017-04-23] MEDS ORDERED: POLYMYXIN B/ OPH (15:32)
[2017-04-23] MEDS ORDERED: SINGULAIR1 PO ×2 (15:33→16:36)
[2017-04-23] MEDS ORDERED: NO MEDICATIONS (15:37)
[2017-04-23] MEDS ORDERED: ATROVENTUD INH (16:36)
[2017-04-23] MEDS ORDERED: ZANAFLEX2 MG PO (16:36)
[2017-04-27] MEDS ORDERED: MUCINEX600 MG PO (11:44)
[2017-04-27] MEDS ORDERED: P10 PO (11:48)
[2017-04-27] MEDS ORDERED: DEMA20 PO (11:48)
[2017-04-27] MEDS ORDERED: KLOR-CON 1010 MEQ PO (11:49)
[2017-04-27] MEDS ORDERED: PEP20 PO (11:49)
[2017-04-27] MEDS ORDERED: BROVANA15 MCG INH (11:53)
[2017-04-27] MEDS ORDERED: PULRESP1 INH (11:53)
[2017-07-01] MEDS ORDERED: ZANAFLEX2 MG PO (00:03)
[2017-07-01] MEDS ORDERED: BUM2 PO (00:03)
[2017-07-01] MEDS ORDERED: PROTONIX PO (00:03)
[2017-07-01] MEDS ORDERED: SINGULAIR1 PO (00:03)
[2017-07-01] MEDS ORDERED: VENTOLIN HFA PO (00:03)
[2017-07-01] MEDS ORDERED: K-TABS10 MEQ PO (00:04)
[2017-07-01] MEDS ORDERED: PAIN RX PO (00:04)
[2017-07-01] MEDS ORDERED: MUCINEX600 MG PO (00:05)
[2017-07-01] MEDS ORDERED: VITAMINS PO (00:05)
[2017-07-01] MEDS ORDERED: [UNRECOGNIZED DRUG - OTHER] PO (00:05)
[2017-07-01] MEDS ORDERED: *UNABLE1 (00:06)
== END 2016-12-24 16:20 | disposition home health service (06) | DRG 189 ==
LOC: ER 08:44 → 7NO 10:57
PROVIDERS: Hospitalist; Internal Medicine
DX: J96.21 Acute and chronic respiratory failure with hypoxia (principal); I27.81 Cor pulmonale (chronic); J47.1 Bronchiectasis with (acute) exacerbation; J44.1 Chronic obstructive pulmonary disease with (acute) exacerbation; E66.01 Morbid (severe) obesity due to excess calories; Z99.81 Dependence on supplemental oxygen; B96.5 Pseudomonas (aeruginosa) (mallei) (pseudomallei) as the cause of diseases classified elsewhere; E87.6 Hypokalemia; T50.1X5A Adverse effect of loop [high-ceiling] diuretics, initial encounter; Z85.038 Personal history of other malignant neoplasm of large intestine; Z79.899 Other long term (current) drug therapy; Z87.891 Personal history of nicotine dependence; Z80.1 Family history of malignant neoplasm of trachea, bronchus and lung; Z80.8 Family history of malignant neoplasm of other organs or systems; Z80.0 Family history of malignant neoplasm of digestive organs; Z90.49 Acquired absence of other specified parts of digestive tract; Z68.38 Body mass index [BMI] 38.0-38.9, adult
CPT/HCPCS: 36600; 71010; 71020; 80048; 80053; 82805; 83735; 83880; 84100; 84145; 85025; 87040; 87070; 87205; 87804; 93005; 94640; 96374; 96375; 99285; A9270-GY; J0456; J0692; J2930